=== PATIENT | male | born 1945 ===

== ENCOUNTER 2023-03-12 15:31 | Emergency (ER) | payer OTHER ==
[~2023-03-12] VITALS: Ht 167.6 cm; Wt 64.4 kg
[2023-03-12] MEDS ORDERED: predniSONE 10 MG TABLET PO ONE (16:30)
[2023-03-12] MEDS ORDERED: ALBUTEROL SULFATE 2.5 MG/3 ML NEBU NEB ONE (16:30)
[2023-03-12] MEDS ORDERED: IPRATROPIUM BROMIDE 0.5 MG/2.5 ML NEBU NEB ONE (16:30)
[2023-03-12] MEDS ORDERED: predniSONE 10 MG TABLET ONE (16:34)
[2023-03-12] MEDS ORDERED: predniSONE 50 MG TABLET ONE (16:34)
[2023-03-12] MEDS ORDERED: IPRATROPIUM BROMIDE 0.5 MG/2.5 ML NEBU ONE ×2 (16:35→16:56)
[2023-03-12] MEDS ORDERED: ALBUTEROL SULFATE 2.5 MG/3 ML NEBU ONE ×2 (16:35→16:56)
[2023-03-12] MEDS ORDERED: PAXLOVID PO (17:12)
[2023-03-12] MEDS ORDERED: OSEL75CA PO (17:12)
[2023-03-12] MEDS ORDERED: PRED20TA PO (17:12)
[2023-03-12] MEDS ORDERED: ALBU18HF2 INH (17:12)
[2023-03-12 18:14] VITALS: BP 119/77; O2SAT 98
== END 2023-03-12 18:03 | disposition home or self-care (01) ==
LOC: ER 15:35
DX: J20.9 Acute bronchitis, unspecified (principal); Z79.899 Other long term (current) drug therapy; Z20.822 Contact with and (suspected) exposure to COVID-19; Z60.2 Problems related to living alone
CPT/HCPCS: 71045; A4606; A4663; J3590; J7512